=== PATIENT | male | born 1975 | race Caucasian/White ===

== ENCOUNTER 2023-02-16 15:33 | Outpatient (CLI) | payer OTHER, SELFPAY ==
--- NOTE | ~2023-02-16 | US_ITS ---
Limited Abdominal Sonogram: Real-time sonographic imaging of the right upper quadrant was performed. Clinical History: Abnormal liver enzymes Findings: The liver appears echogenic, with no evidence of mass lesion or bile duct dilatation. Main portal vein demonstrates normal direction of flow. Liver measures 20.7 cm in length. The gallbladder is well distended, and appears normal with no evidence of gallstone or wall thickening. The common b ile duct measures 7 mm. The visualized pancreas, aorta, and IVC are unremarkable. Impression: Diffuse fatty infiltration of the liver with associated hepatomegaly. Mildly dilated common bile duct, of uncertain clinical significance. Reviewed, dictated and finalized at location . Impression: Diffuse fatty infiltration of the liver with associated hepatomegaly. Mildly dilated common bile duct, of uncertain clinical significance.
== END 2023-02-16 15:34 | disposition home or self-care (01) ==
PROVIDERS: PCP Physician Assistant; Visit Provider Physician Assistant
DX: R74.01 Elevation of levels of liver transaminase levels (principal); M89.8X1 Other specified disorders of bone, shoulder
CPT/HCPCS: 76705